=== PATIENT | female | born 1960 | race African-American/Black ===

== ENCOUNTER 2019-04-28 18:34 | Emergency (ER) | payer OTHER, MEDICAID, SELFPAY ==
[2019-04-28 18:59] VITALS: BP 153/98; PULSE 88; RESP 18; TEMP 36.7; O2SAT 99; BMI 27.4
--- NOTE | 2019-04-28 19:03 | DI.RAD.S_ITS ---
PROCEDURE: XR KNEE RT 3V INDICATIONS: RIGHT KNEE PAIN TECHNIQUE: 3 views of the knee were acquired. COMPARISON: None. FINDINGS: Bones: No fractures or dislocations. No suspicious bony lesions. Soft tissues: Small suprapatellar joint effusion is seen.. No suspicious soft tissue calcifications. IMPRESSION: No gross acute right knee fracture or dislocation. Small joint effusion. Dictated by: Nicholas Cleveland M.D. on 04/28/2019 at 19:16 Approved by: Nicholas Cleveland M.D. on 04/28/2019 at 19:16
--- NOTE | 2019-04-28 20:13 | ED.LOWEXIN ---
HPI - Extremity Injury (Lower) <ALEX Bhakta - Last Filed: 04/29/19 02:41> General Chief Complaint: Extremity Injury, Lower Stated Complaint: right knee pain injury x4 days Time Seen by Provider: 04/28/19 20:13 Source: patient Mode of arrival: Ambulatory Limitations: no limitations History of Present Illness HPI Narrative: This is a pleasant 58-year-old female, nonsmoker, who presents to ED with nontraumatic right knee discomfort with movement. Patient reports she is a homeless and has been sleeping in the car with the affected knee bent. Patient reports right knee throbbing discomfort for about a week which increases with bending, walking, bearing weight. Patient denies fever, chills, nausea or vomiting. Patient had not taken any medications for this. Patient denies previous injury to affected knee. Patient reports he is able to move her foot and intact has sensation. Related Data Allergies Allergy/AdvReac Type Severity Reaction Status Date / Time prednisone AdvReac Verified 04/28/19 18:59 Review of Systems <ALEX Bhakta - Last Filed: 04/29/19 02:41> Review of Systems ROS Unobtainable: All systems reviewed & are unremarkable except as noted in HPI and below PFSH <ALEX Bhakta - Last Filed: 04/29/19 02:41> Social History Smoking Status: Never smoker Social History Smoking Status: Never smoker Exam <ALEX Bhakta - Last Filed: 04/29/19 02:41> Narrative Exam Narrative: General appearance: well developed, well nourished, in no acute distress. Head: normocephalic, atraumatic, no scalp lesions, non-tender. Eye: pupil equal, round. EOMI. Nose: nares patent. Oral: mucosa moist. Neck/Thyroid: neck supple, full range of motion, no visible masses. Skin: no suspicious rashes, lesions over visible areas. Warm and dry. Heart: no clubbing, no cyanosis, no edema. Lungs: Breathing even and unlabored. No stridor. No accessory muscles used. Chest: normal shape and expansion. Abdomen: non-obese, non-distended. Neurologic: alert and oriented. Cognitive exam, SCREEN VENT BINDER and PNS grossly intact on informal exam. Psych: good eye contact, normal affect. Initial Vital Signs Initial Vital Signs: Vital Signs Temperature 98.1 F 04/28/19 18:59 Pulse Rate 88 04/28/19 18:59 Respiratory Rate 18 04/28/19 18:59 Blood Pressure 153/98 H 04/28/19 18:59 Pulse Oximetry 99 04/28/19 18:59 Extrem Right lower extremity: knee Details: normal to inspection, tenderness (Around the patella), swelling (Very small body to palpate) Location: of the pre-patellar area, abnormal ROM Details: pain with active ROM during; able to extend lower leg actively and knee ligament exam normal and lower leg Details: normal to inspection; no tenderness <Casi Wakefield DO - Last Filed: 04/29/19 08:46> Initial Vital Signs Initial Vital Signs: Vital Signs Temperature 98.1 F 04/28/19 18:59 Pulse Rate 88 04/28/19 18:59 Respiratory Rate 18 04/28/19 18:59 Blood Pressure 153/98 H 04/28/19 18:59 Pulse Oximetry 99 04/28/19 18:59 Procedures <ALEX Bhakta - Last Filed: 04/29/19 02:41> Orthopedic Splinting/Casting Injury #1: Side: right Lower Extremity Injury Location: knee Lower Extremity Immobilizer: Keo wrap Post splinting neuro exam: intact Post splinting vascular exam: intact Placed by: Nursing Scores <ALEX Bhakta - Last Filed: 04/29/19 02:41> GCS Urania coma scale eye opening: Spontaneous Urania coma scale verbal response: Orientated Nikita coma scale motor response: Obey commands Urania coma scale total score: 15 Course <ALEX Bhakta - Last Filed: 04/29/19 02:41> Orders Ordered: Discontinued Medications Ibuprofen (Advil) 800 mg PO NOW ONE Stop: 04/28/19 20:29 Last Admin: 04/28/19 20:54 Dose: Not Given Documented by: JESSICA Vital Signs Vital signs: Vital Signs - 8 hr 04/28/19 18:59 04/28/19 20:54 Temperature 98.1 F Pulse Rate 88 88 Respiratory Rate 18 18 Blood Pressure 153/98 H Blood Pressure [Left Arm] 142/72 H Pulse Oximetry 99 98 <Casi Wakefield DO - Last Filed: 04/29/19 08:46> Orders Ordered: Discontinued Medications Ibuprofen (Advil) 800 mg PO NOW ONE Stop: 04/28/19 20:29 Last Admin: 04/28/19 20:54 Dose: Not Given Documented by: JESSICA Vital Signs Vital signs: Vital Signs - 8 hr 04/28/19 18:59 04/28/19 20:54 Temperature 98.1 F Pulse Rate 88 88 Respiratory Rate 18 18 Blood Pressure 153/98 H Blood Pressure [Left Arm] 142/72 H Pulse Oximetry 99 98 MDM - Extremity Injury (Lower) <ALEX Bhakta - Last Filed: 04/29/19 02:41> Differential Diagnosis Differential diagnosis: Likely other (A knee dislocation, knee contusion, knee fracture) Medical Records Attestation: I reviewed the patient's medical records. Imaging Data XR-Knee RT: Radiologist's impression: [address] [address] XRay Report Signed Patient: Allison Owusu HMR#: [id number] : 1960Acct:[id number] Age/Sex: 58 / FDate of Service: 04/28/19 Loc: ED Accession Number: [id number] Procedure: XR knee RT 3V Ordering Provider: Radha Marion D.O. PROCEDURE: XR KNEE RT 3V INDICATIONS: RIGHT KNEE PAIN TECHNIQUE: 3 views of the knee were acquired. COMPARISON: None. FINDINGS: Bones: No fractures or dislocations. No suspicious bony lesions. Soft tissues: Small suprapatellar joint effusion is seen.. No suspicious soft tissue calcifications. IMPRESSION: No gross acute right knee fracture or dislocation. Small joint effusion. Dictated by: Nicholas Cleveland M.D. on 04/28/2019 at 19:16 Approved by: Nicholas Cleveland M.D. on 04/28/2019 at 19:16 [facility] Narrative Medical decision making narrative: This is a 58 year female who presents to ED with nontraumatic right knee pain worsens with movement. Patient reports she has been sleeping in a car with affected knee bent for several days before she noticed pain. X-ray shows no acute findings such as dislocation or fracture but showed a small joint effusion and supra patellar joint. Patient provided Motrin for pain and inflammation and applied Keo wrap for support and discomfort. Patient was able to move her toe is with intact sensation with brisk cap refill and intact dorsal pedal pulse on affected leg. Patient is able to bend and extend affected leg with some discomfort. Patient advised to use RICE therapy and advised to follow up with her primary care physician next week and return precautions were discussed. Return precautions were discussed and patient agrees with treatment plan and no further questions were expressed at this time. Discharge Plan Departure Patient Disposition: Home Clinical Impression: Effusion of right knee Acute knee pain Qualifiers: Laterality: right Qualified Code(s): M25.561 - Pain in right knee Discharge Date/Time: 04/28/19 20:57 Instructions: DI for Knee Pain Activity Restrictions/Additional Instructions: You have been diagnosed with [nontraumatic right knee pain and x-ray shows small supra patellar joint effusion. Please rest, elevated affected knee, use keo wrap for support and preventing bending affected knee, you could use ice/warm pack as needed]. What to do: *Take your medications as directed. You can take latf-wct-tnlsoie ibuprofen, Aleve, or naproxen as needed with food for pain. You can also use lucz-tds-ohfqnat Tylenol or acetaminophen for pain. *Follow up with your primary care provider in 2-3 days, call for an appointment. Let them know you were seen in the ED and that we asked you to be seen in follow up. Your primary care doctor may refer you to physical therapy and further imaging tests if the pain persists. *Return to ED if you have any new, worsening, or concerning symptoms, such as [worsening pain, fever, warmth, swelling, tingling/numbness/weakness to right leg, chest pain, breathing difficulty, unable to tolerate fluids, or any acute concerns]. Referrals: Salbador Quinones DO [Primary Care Provider] -
[2019-04-28 20:54] VITALS: BP 142/72; PULSE 88; RESP 18; O2SAT 98
--- NOTE | 2019-04-28 20:55 | PC.NURSE ---
CSM fully intact.
--- NOTE | 2019-04-28 20:58 | PC.NURSE ---
Left note for social welfare administrator to call patient on Tuesday to see if we can assist w/ housing. Pt is currently homeless.
--- NOTE | 2019-05-14 17:33 | CM.SWNOTE ---
ED SILVERWARE BUFFING MACHINE OPERATOR SILVERWARE BUFFING MACHINE OPERATOR found note that unfortunately had been from 04/28/19. RN requested SILVERWARE BUFFING MACHINE OPERATOR to call this pt. Called [phone] and left a message offering to speak with her regarding resources.
== END 2019-04-28 20:57 | disposition home or self-care (01) ==
PROVIDERS: Emergency Provider Nurse Practitioner Family; PCP Family Medicine
DX: M25.461 Effusion, right knee (principal); M25.561 Pain in right knee
CPT/HCPCS: 73562; 99282; 99283

== ENCOUNTER → 2019-09-13 14:03 | Outpatient (CLI) | payer OTHER, MEDICAID, SELFPAY ==
--- NOTE | 2019-09-13 | DI.MG.S_ITS ---
BILATERAL DIGITAL DIAGNOSTIC MAMMOGRAM 3D/2D: 09/13/2019 CLINICAL: Left breast pain. Comparison is made to exams dated: 01/02/2015 mammogram and 08/31/2012 mammogram - [facility]. There are scattered fibroglandular elements in both breasts. No significant masses, calcifications, or other findings are seen in either breast. Specifically, no abnormality seen in the left breast 2:00 o'clock region at the site of focal pain. IMPRESSION: INCOMPLETE: NEEDS ADDITIONAL IMAGING EVALUATION No significant masses, calcifications, or other findings are seen in either breast. Recommend targeted ultrasound of the left breast site of focal pain. This exam was interpreted at Station ID: [id number]. NOTE: For mammograms, a report in lay terms will be sent to the patient. Approximately 15% of breast malignancies will not be visualized mammographically. In the management of a palpable breast mass, a negative mammogram must not discourage biopsy of a clinically suspicious lesion. Electronically Signed By: Rafael Rosenberg M.D. slc/:09/13/2019 15:56:22 ACR BI-RADS Category 0: Incomplete [id number]
--- NOTE | 2019-09-13 | DI.US.S_ITS ---
LIMITED ULTRASOUND OF LEFT BREAST: 09/13/2019 CLINICAL: Focal left breast pain. Comparison is made to exams dated: 09/13/2019 mammogram - [facility], 01/02/2015 mammogram, 01/02/2015 ultrasound, and 08/31/2012 mammogram - [facility]. Color flow and real-time ultrasound of the left breast 2 o'clock region were performed. Decker scale images of the real-time examination were reviewed. No significant abnormalities were seen sonographically in the left breast in the region of focal pain. IMPRESSION: NEGATIVE There is no sonographic evidence of malignancy. Return to annual mammogram screening schedule is recommended. Exam findings and recommendation were conveyed to the patient by the Spout Liner. This exam was interpreted at Station ID: [id number]. Electronically Signed By: Rafael Rosenberg M.D. slc/:09/13/2019 16:06:52 letter sent: Normal Exam Ultrasound BI-RADS: 1 Negative
== END ==
PROVIDERS: PCP Family Medicine; Referring Provider Family Medicine; Visit Provider Family Medicine
DX: R92.8 Other abnormal and inconclusive findings on diagnostic imaging of breast (principal); N64.4 Mastodynia
CPT/HCPCS: 76642; 77066; G0279

== ENCOUNTER 2019-10-31 05:01 | Emergency (ER) | payer OTHER, MEDICAID, SELFPAY ==
--- NOTE | 2019-10-31 05:03 | ED_ITS ---
HPI - Anxiety General Chief Complaint: Anxiety Stated Complaint: anxiety Time Seen by Provider: 10/31/19 05:02 Source: patient Mode of arrival: Ambulatory Limitations: no limitations History of Present Illness HPI narrative: This is a 59-year-old female who comes in with complaint of anxiety. Patient states that she is homeless and lives usually in her RV but is currently staying with her daughter and sleeping at her place. She states that this morning she woke up at about 4:00 a.m. feeling anxious. She woke up, read her Bible tiffanie on her phone discussed with her daughter and this made her feel a little bit better. She states she does still feels sort of anxious and slightly claustrophobic. She denies any headache, no vision changes, she denies any chest pain or pressure, no shortness of breath, no nausea or vomiting, no issues with bowel movements, no issues with urination. She denies any other numbness tingling or weakness in her extremities. She states that her son is currently staying in her RV but that she is used to having to be mobile and moving around. She does not feel like there are any new big changes or stressors at the moment. She does have a history of hypertension she does take amlodipine, she states that she is allergic to prednisone. She denies any tobacco, alcohol or illicit. Patient states PCP is Dr. Reyes, she saw him 2 weeks ago. Related Data Previous Rx's Medication Instructions Recorded hydroxyzine HCl 25 mg PO BEDTIME PRN #10 tab 10/31/19 Allergies Allergy/AdvReac Type Severity Reaction Status Date / Time shellfish derived Allergy Verified 10/31/19 05:11 prednisone AdvReac Verified 04/28/19 18:59 Review of Systems Review of Systems ROS Unobtainable: All systems reviewed & are unremarkable except as noted in HPI and below Patient History Medical History (Updated 10/31/19 @ 05:20 by Radha Marion DO) Hypertension (Acute) Social History Smoking Status: Never smoker Smoking Status: Never smoker Substance Use Type: does not use Exam Narrative Exam Narrative: GENERAL: Alert and oriented x three, well-nourished, well- appearing female in mild distress. HEENT: Head normocephalic, atraumatic, EOMI, pupils reactive, face symmetric, moist mucous membranes NECK: Supple, full range of motion CARDIOVASCULAR: Regular rate and rhythm without murmurs, rubs or gallops. RESPIRATORY: Breath sounds equal bilaterally, no wheezes rales or rhonchi. ABDOMEN: Soft, nontender. Normoactive bowel sounds all 4 quadrants. No guarding or rebound, rigidity, no mass : No CVA tenderness EXTREMITIES: Normal range of motion, no clubbing or edema. Neurovascularly intact NEUROLOGICAL: Cranial nerves II through XII grossly intact. Moving all extremities SKIN: Warm, dry, no petechiae, no rashes or lesions. PSYCH: anxiety, denies other symptoms/issues Initial Vital Signs Initial Vital Signs: Vital Signs Temperature 97.1 F L 10/31/19 05:11 Pulse Rate 93 H 10/31/19 05:11 Respiratory Rate 18 10/31/19 05:11 Blood Pressure 193/105 H 10/31/19 05:11 Pulse Oximetry 100 10/31/19 05:11 Course Orders Ordered: ED Orders 10/31/19 05:16 EKG-12 Lead Stat Discontinued Medications Hydroxyzine Pamoate (Vistaril) 25 mg PO NOW ONE Stop: 10/31/19 05:23 Last Admin: 10/31/19 05:26 Dose: 25 mg Documented by: KIMBER Vital Signs Vital signs: Vital Signs - 8 hr 10/31/19 05:11 10/31/19 05:39 Temperature 97.1 F L Pulse Rate 93 H 90 Respiratory Rate 18 18 Blood Pressure 193/105 H Blood Pressure [Left Arm] 169/101 H Pulse Oximetry 100 100 [facility] - Anxiety ECG Data Attestation: I personally reviewed and interpreted this ECG as follows: Prior ECG tracings: not available for review Interpretation: Sinus rhythm rate 84 SD 178 QRS 82 QTC of 439. Q-wave in 2, 3 and AVF. Inverted T-wave in 3. No ST elevation or depression otherwise apprecia lilo. [facility] Narrative Medical decision making narrative: Patient does request something to help her go back to sleep. She does not seem excessively anxious. Heart rate is in normal range on recheck, patient is hypertensive on here in ED. No acute EKG changes or symptoms to suggest ACS or other cause. Discharge Plan Departure Patient Disposition: Home Clinical Impression: Anxiety Discharge Date/Time: 04/01/20 05:44 Instructions: DI for Anxiety -- Adult Activity Restrictions/Additional Instructions: Continue your blood pressure medication. You may take hydroxyzine 1 tablet prior to sleep as needed for anxiety. This medication can make you sleepy do not drive, perform hazardous activities or make any major decisions while taking it. Return to the ER for fevers, shortness of breath, chest pain or pressure, severe headaches, new vision changes, persistent vomiting, swelling in your extremities or other new or concerning symptoms. Prescriptions: New hydroxyzine HCl 25 mg tablet 25 mg PO BEDTIME PRN (Reason: anxiety) Qty: 10 RF: 0 Referrals: Eric Reyes MD [Non-Staff] - Salbador Quinones DO [Primary Care Provider] -
[2019-10-31 05:11] VITALS: BP 193/105; PULSE 93; RESP 18; TEMP 36.2; O2SAT 100
[2019-10-31] MEDS: hydrOXYzine pamoate 25 MG CAPSULE PO (05:26)
[2019-10-31 05:39] VITALS: BP 169/101; PULSE 90; RESP 18; O2SAT 100
== END 2019-10-31 05:44 | disposition home or self-care (01) ==
PROVIDERS: Emergency Provider Emergency Medicine; PCP Family Medicine
DX: F41.9 Anxiety disorder, unspecified (principal); I10 Essential (primary) hypertension
CPT/HCPCS: 93005; 99283

== ENCOUNTER → 2020-10-08 16:01 | Outpatient (CLI) | payer OTHER, MEDICAID, SELFPAY ==
--- NOTE | 2020-10-08 16:04 | DI.MG.S_ITS ---
BILATERAL DIGITAL SCREENING MAMMOGRAM 3D/2D WITH CAD: 10/08/2020 CLINICAL: Routine screening. Comparison is made to exams dated: 09/13/2019 mammogram - [facility], 01/02/2015 mammogram, and 08/31/2012 mammogram - [facility]. There are scattered fibroglandular elements in both breasts. Current study was also evaluated with a Computer Aided Detection (CAD) system. No significant masses, calcifications, or other findings are seen in either breast. There has been no significant interval change. IMPRESSION: NEGATIVE There is no mammographic evidence of malignancy. A 1 year screening mammogram is recommended. This exam was interpreted at Station ID: [id number]. NOTE: For mammograms, a report in lay terms will be sent to the patient. Approximately 15% of breast malignancies will not be visualized mammographically. In the management of a palpable breast mass, a negative mammogram must not discourage biopsy of a clinically suspicious lesion. Electronically Signed By: Lucien Mcadams M.D., jr/frandy:10/08/2020 16:32:51 letter sent: Normal Exam ACR BI-RADS Category 1: Negative 3341F
== END ==
PROVIDERS: PCP Family Medicine; Referring Provider Family Medicine; Visit Provider Family Medicine
DX: Z12.31 Encounter for screening mammogram for malignant neoplasm of breast (principal)
CPT/HCPCS: 77063; 77067

== ENCOUNTER 2021-12-20 02:36 | Emergency (ER) | payer OTHER, MEDICAID, SELFPAY ==
[2021-12-20 02:40] VITALS: BP 181/100; PULSE 109; RESP 17; TEMP 36.4; O2SAT 97; BMI 29.9
--- NOTE | 2021-12-20 02:51 | ED.GENADULT ---
HPI - General Adult General Chief complaint: Hypertension Stated complaint: nausea/headache x1 day Time Seen by Provider: 12/20/21 02:45 Source: patient Mode of arrival: Ambulatory History of Present Illness HPI narrative: 61-year-old female nonsmoker presents with her son and a chief complaint of a squeezing headache and nausea for the past day or 2. She admits to gradual onset of her headache that is squeezing and a 10/10. She denies any obvious provocation or palliation. She has some nasal congestion but denies any sore throat, cough or shortness of breath. She denies any injury or trauma. She has had no fever or chills and denies neck pain. She takes no blood thinners. She denies chest pain or shortness of breath. She has had nausea but denies any vomiting. She states eating or drinking seems to make her nausea worse. She denies any diarrhea constipation, dysuria, frequency or urgency. She denies any dietary or medication change. She has no neurologic symptoms such as blurred vision, trouble speech, extremity numbness, tingling or weakness. Her daughter was seen and evaluated for COVID Related Data Previous Rx's Medication Instructions Recorded hydroxyzine HCl 25 mg tablet 25 mg PO BEDTIME PRN #10 tab 10/31/19 Allergies Allergy/AdvReac Type Severity Reaction Status Date / Time shellfish derived Allergy Verified 10/31/19 05:11 prednisone AdvReac Verified 04/28/19 18:59 Review of Systems Review of Systems Narrative: GENERAL: See HPI HEENT: See HPI. RESPIRATORY: Denies dyspnea, cough, wheezing, hemoptysis, sputum. CARDIOVASCULAR: Denies chest pain, palpitations, orthopnea, edema, GASTROINTESTINAL: See HPI : Denies dysuria, frequency, incontinence, hematuria, urinary retention. MUSCULOSKELETAL: denies weakness, joint pain, or bony pain SKIN: Denies rash, skin lesions, or other NEUROLOGIC: See HPI PSYCHIATRIC: No concerning psychosocial issues. 12 point review of systems is negative except for those stated above Patient History Medical History Hypertension Social History Smoking Status: Never smoker Smoking Status: Never smoker alcohol intake frequency: 0-2 drinks per day Substance Use Type: does not use Exam Narrative Exam Narrative: GENERAL: [61] year old patient appears stated age. Well-developed patient, in mild distress. GCS 15 HEAD: Atraumatic. Normocephalic. EYES: Pupils equal round and reactive. Extraocular motions intact. No scleral icterus. No injection or drainage. ENT: Nose without bleeding, purulent drainage. Throat without erythema, tonsillar hypertrophy or exudate. Airway patent. NECK: Trachea midline. Non tender, no meningeal signs CARDIOVASCULAR: Regular rate and rhythm without murmurs, gallops, or rubs. RESPIRATORY: Clear to auscultation. Breath sounds equal bilaterally. No wheezes, rales, or rhonchi. GASTROINTESTINAL: Abdomen soft, non-tender, nondistended. EXTREMITIES: No edema or joint tenderness. BACK: Nontender without deformity or crepitance. No flank tenderness. NEURO: AOx3. SKIN: No rash or erythema of visible areas NIH Stroke Scale 1a. LOC: Patient is alert and keenly responsive (0) 1b. LOC Questions: Patient answers both LOC questions accurately (0) 1c. LOC Commands: Patient performs both tasks correctly (0) 2. Best Gaze: Normal (0) 3. Visual: No visual loss (0) 4. Facial palsy: Normal symmetrical movements (0) 5. Motor arm: No drift (0) 6. Motor leg: No drift (0) 7. Limb ataxia: Absent (0) 8. Sensory: Normal (0) 9. Best language: No aphasia; normal (0) 10. Dysarthria: Normal (0) 11. Extinction and inattention: No abnormality (0) NIHSS: 0 Initial Vital Signs Initial Vital Signs: Vital Signs Temperature 97.6 F 12/20/21 02:40 Pulse Rate 109 H 12/20/21 02:40 Respiratory Rate 17 12/20/21 02:40 Blood Pressure 181/100 H 12/20/21 02:40 Pulse Oximetry 97 12/20/21 02:40 Course Course Course Narrative: Headache considerations include, but not limited to: Subarachnoid hemorrhage, but unlikely as patient denies sudden onset of pain, not worst of life, or neck pain Meningitis considered, but thought unlikely given lack of Brudzinski's, Kernig's sign, altered mental status or fever Giant cell arteritis considered, but thought unlikely given lack of unilateral findings, pain in confucianist, vision change HTN Emergency considered, but thought unlikely given normal vitals Other serious diagnoses considered unlikely given lack of red flag findings such as sudden onset, increasing frequency, immunocompromise, systemic signs (fever, chills, stiff neck, or rash), focal neurologic findings, trauma, blood thinners, etc. Orders Ordered: ED Orders 12/20/21 02:45 Consult to [employer]UM[employer] APPRENTICE - Supervisor [employer] Stat 12/20/21 02:46 COVID19 -Nasal RAPID/Pre-Proc Stat 12/20/21 02:52 Urinalysis and Microscopic Stat Discontinued Medications Acetaminophen (Acetaminophen 325 Mg Tablet) 975 mg PO NOW ONE Stop: 12/20/21 03:58 Last Admin: 12/20/21 04:01 Dose: 975 mg Documented by: CHYNA Sodium Chloride (Normal Saline 0.9%) 1,000 mls @ 1,000 mls/hr IV BOLUS ONE Stop: 12/20/21 04:01 Last Infusion: 12/20/21 05:02 Dose: 0 mls/hr Documented by: [email or web address] Admin: 12/20/21 03:12 Dose: 1,000 mls/hr Documented by: [email or web address] Ketorolac Tromethamine (Ketorolac 30 Mg/Ml Vial) 15 mg IV NOW ONE Stop: 12/20/21 03:03 Last Admin: 12/20/21 03:11 Dose: 15 mg Documented by: [email or web address] Ondansetron HCl (Ondansetron 4 Mg/2 Ml Inj) 4 mg IV NOW ONE Stop: 12/20/21 03:03 Last Admin: 12/20/21 03:12 Dose: 4 mg Documented by: [email or web address] Pantoprazole Sodium (Pantoprazole 40 Mg Vial) 40 mg IV NOW ONE Stop: 12/20/21 03:03 Last Admin: 12/20/21 03:12 Dose: 40 mg Documented by: [email or web address] Vital Signs Vital signs: Vital Signs - 8 hr 12/20/21 02:40 12/20/21 05:08 Temperature 97.6 F Pulse Rate 109 H 77 Respiratory Rate 17 20 Blood Pressure 181/100 H 137/80 Pulse Oximetry 97 97 Medical Decision Making Lab Data Labs: Lab Results 12/20/21 12/20/21 Range/Units 02:46 02:52 Urine Color Yellow Urine Appearance Clear Urine pH 7.5 (4.5-8.0) Ur Specific [place] 1.015 (1.000-1.035) Urine Protein Trace H (Negative) Urine Glucose (UA) Negative (Negative) g/dL Urine Ketones Negative (NEGATIVE) Urine Occult Blood Negative (Negative) Urine Nitrate Negative (Negative) Urine Bilirubin Negative (NEGATIVE) Urine Urobilinogen 0.2 (0.2) E.U./dL Ur Leukocyte Esterase Negative (NEGATIVE) Urine RBC None seen (0-5/HPF) Urine WBC None seen (0-5/HPF) Urine Bacteria None seen (None) Ur Culture Indicated? Cult not indicated SARS-CoV-2 (PCR) Positive H (Negative) MDM Narrative Medical decision making narrative: Patient improved with above-stated symptoms. She does not have red flag features of headache such as those mentioned above. She is COVID positive but does not require supplemental oxygen or demonstrate any significant work of breathing. She is tolerating orals and well hydrated. Her nausea has been present for multiple days suggesting she is likely outside of the timeframe in which she could be considered a candidate for Paxlovid. Patient given return precautions and questions answered to her apparent satisfaction Discharge Plan Departure Patient Disposition: Home Clinical Impression: COVID Instructions: DI for COVID-19 (Suspected or Confirmed ) Activity Restrictions/Additional Instructions: *You have been diagnosed with [ COVID-19] *What to do: * per recommendations from the CDC and the [facility] Department of Health * stay home except to get medical care. Restrict activities outside your home, except for getting medical care. Do not go to work, school, or public areas. Avoid using public transportation, ride sharing, or taxis. * separate yourself from other people in your home. * call ahead before visiting your doctor * Wear a facemask * Cover your coughs and sneezes * Clean your hands often * Avoid sharing household items * Clean all high-touch services every day * Monitor your symptoms and seek prompt medical attention if your illness is worsening, particularly with difficulty in breathing. You may discontinue your isolation when: 1. You have been fever-free for at least 24 hours without the use of fever reducing medication, AND 2. Your symptoms are getting better, AND 3. At least 5 days have passed since symptoms first appeared 4. If you have fever, continue to stay home until fever resolves Individuals with laboratory confirmed COVID-19 who have not had any symptoms may discontinue home isolation when at least 5 days have passed since the date of their first COVID-19 diagnostic test and have had no subsequent illness You should notifiy any friends and family that have been in close contact *If up to date on COVID Vaccines, then they do not need to quarantine unless symptoms develop. Get tested on day 5 (or sooner if symptoms develop). Take precautions and watch for symptoms until day 10 *If NOT up to date on COVID Vaccines, then CDC recommends quarantine for at least 5 full days. Wear a well fitted mask at home if you must be around others. If they develop symptoms they should get tested. If they remain asymptomatic they should get tested on day 5. They should take precautions and monitor for symptoms until day 10. Prescriptions: No Action hydroxyzine HCl 25 mg tablet 25 mg PO BEDTIME PRN (Reason: anxiety) Qty: 10 0RF Referrals: Salbador Quinones DO [Primary Care Provider] -
[2021-12-20 03:03] LABS: COVID19 -Nasal RAPID POSITIVE (Negative)
[2021-12-20] MEDS: KETOROLAC 30 MG/ML VIAL 15 MG IV (03:11)
[2021-12-20] MEDS: PANTOPRAZOLE 40 MG VIAL IV (03:12)
[2021-12-20] MEDS: ONDANSETRON 4 MG/2 ML INJ IV (03:12)
[2021-12-20] MEDS: SODIUM CHLORIDE 0.9% 1,000 ML 1000 ML IV (03:12)
[2021-12-20] MEDS: ACETAMINOPHEN 325 MG TABLET 975 MG PO (04:01)
[2021-12-20 04:57] LABS: Appearance Urine UA CLEAR; Bilirubin Urine UA NEGATIVE (NEGATIVE); Color Urine UA YELLOW; Glucose Urine UA NEGATIVE (Negative); Ketones Urine UA NEGATIVE (NEGATIVE); Leukocyte Esterase Urine UA NEGATIVE (NEGATIVE); Nitrite Urine UA NEGATIVE (Negative); Occult Blood Urine UA NEGATIVE (Negative); Protein Urine UA TRACE (Negative); Specific Gravity Urine UA 1.015 (1.000-1.035); Urobilinogen Urine UA 0.2 E.U./dL (0.2)
[2021-12-20 04:58] LABS: pH Urine UA 7.5 (4.5-8.0)
[2021-12-20 05:08] VITALS: BP 137/80; PULSE 77; RESP 20; O2SAT 97
[2021-12-20 05:15] LABS: RBC Urine None Seen (0-5/HPF); WBC Urine None Seen (0-5/HPF)
[2021-12-20 05:16] LABS: Bacteria Urine None Seen; Culture Indicated Urine Cult Not Indicated
== END 2021-12-20 05:08 | disposition home or self-care (01) ==
PROVIDERS: Emergency Provider Emergency Medicine; PCP Family Medicine
DX: U07.1 COVID-19 (principal); R11.0 Nausea
CPT/HCPCS: 36415; 81001; 87635; 96374; 96375; 99284; C9803; C9113; J1885; J2405

== ENCOUNTER 2022-04-27 07:21 | Emergency (ER) | payer OTHER, MEDICAID, SELFPAY ==
[2022-04-27 07:46] VITALS: BP 165/106; PULSE 92; RESP 16; TEMP 37.1; O2SAT 99; BMI 29.9
--- NOTE | 2022-04-27 08:09 | DI.RAD.S_ITS ---
PROCEDURE: XR CHEST 1V INDICATIONS: chest pain TECHNIQUE: One view of the chest was acquired. COMPARISON: None. FINDINGS: Surgical changes and devices: None. Lungs and pleura: Lungs are clear. No pleural effusions or pneumothorax. Mediastinum: Mediastinal contours appear normal. Heart size is normal. Bones and chest wall: No suspicious bony lesions. Overlying soft tissues appear unremarkable. IMPRESSION: No acute pulmonary process. Dictated by: Brianne Lobato M.D. on 04/27/2022 at 9:00 Approved by: Brianne Lobato M.D. on 04/27/2022 at 9:00
[2022-04-27 08:12] VITALS: PULSE 97; O2SAT 99
[2022-04-27 08:13] VITALS: BP 154/93; PULSE 86; O2SAT 98
[2022-04-27 08:30] VITALS: BP 161/98; PULSE 87; RESP 18; O2SAT 97
--- NOTE | 2022-04-27 08:41 | DI.CT.S_ITS ---
PROCEDURE: CT HEAD/BRAIN WO CON INDICATIONS: headache htn TECHNIQUE: Noncontrast 4.5 mm thick angled axial sections acquired from the foramen magnum to the vertex, with coronal and sagittal reformats. For radiation dose reduction, the following was used: automated exposure control, adjustment of mA and/or kV according to patient size. COMPARISON: None. FINDINGS: Image quality: Excellent. CSF spaces: Basal cisterns are patent. No extra-axial fluid collections. Ventricles are normal in size and shape. Brain: No midline shift. No intracranial masses or hemorrhage. Decker-white matter interface is normal. Skull and face: Calvarium and visualized facial bones are intact, without suspicious lesions. Sinuses: Visualized sinuses and mastoids are clear. IMPRESSION: No CT evidence of acute intracranial abnormalities. Dictated by: Nicholas Cleveland M.D. on 04/27/2022 at 8:56 Approved by: Nicholas Cleveland M.D. on 04/27/2022 at 8:57
--- NOTE | 2022-04-27 08:41 | ED.GENADULT ---
HPI - General Adult General Chief complaint: Hypertension Stated complaint: HIGH BLOOD PRESSURE 191/114 Time Seen by Provider: 04/27/22 08:14 History of Present Illness HPI narrative: Patient is a 61-year-old female history of hypertension and asthma presenting today with ongoing headache and elevated blood pressure. She said that she was out of her amlodipine which he has been taking for blood pressure for about 1 month. She recently restarted it however she started having a light headache and noted that her blood pressure was quite elevated. She took at [employer] and was 191/100 head. She took some and ibuprofen ckgz-yic-yjofgoj which she said did not really help. She is here just because she is worried about her blood pressure and headache. She denies any chest pain or pressure. No blurry vision. No nausea or vomiting. No weakness numbness or tingling. Related Data Previous Rx's Medication Instructions Recorded hydroxyzine HCl 25 mg tablet 25 mg PO BEDTIME PRN anxiety #10 10/31/19 tabs Allergies Allergy/AdvReac Type Severity Reaction Status Date / Time shellfish derived Allergy Verified 10/31/19 05:11 prednisone AdvReac Verified 04/28/19 18:59 Review of Systems Review of Systems Narrative: GENERAL: Denies chills, fatigue, malaise, fever, sweats, travel HEENT: Denies sinus pain, ear pain, sore throat, difficulty swallowing, neck pain RESPIRATORY: Denies dyspnea, cough, wheezing, hemoptysis, sputum. CARDIOVASCULAR: Denies chest pain, palpitations, orthopnea, edema GASTROINTESTINAL: Denies nausea, vomiting, abdominal pain, diarrhea, constipation, melena. : Denies dysuria, frequency, incontinence, hematuria, urinary retention, flank pain. MUSCULOSKELETAL: Denies weakness, joint pain, or bony pain SKIN: No rash, no erythema, no pruritus NEUROLOGIC: + headache, see HPI PSYCHIATRIC: No concerning psychosocial issues. 12 point review of systems is negative except for those stated above and HPI Patient History Medical History Hypertension Social History Smoking Status: Never smoker Smoking Status: Never smoker alcohol intake frequency: 0-2 drinks per day Substance Use Type: does not use Exam Initial Vital Signs Initial Vital Signs: Vital Signs Temperature 98.7 F 09/27/22 07:46 Pulse Rate 92 H 04/27/22 07:46 Respiratory Rate 16 04/27/22 07:46 Blood Pressure 165/106 H 04/27/22 07:46 Pulse Oximetry 99 04/27/22 07:46 Oxygen Delivery Method 04/27/22 07:46 GENERAL: Alert pleasant 61-year-old female HEENT: Head atraumatic,EOMI, pupils reactive, face symmetric, moist mucous membranes CARDIOVASCULAR: Regular rate and rhythm without murmurs, rubs or gallops. RESPIRATORY: Breath sounds equal bilaterally, no wheezes rales or rhonchi. ABDOMEN: Soft, nontender. Normoactive bowel sounds all 4 quadrants. No guarding or rebound. EXTREMITIES: Normal range of motion, no clubbing or edema. Neurovascularly intact NEUROLOGICAL: Alert and oriented x4.Normal gait and speech. Cranial nerves II through XII grossly intact. Good mwhfow-oc-wbso, good mzvp-ku-awii, strength equal bilaterally, no dysarthria or aphasia, sensation in tact to soft touch bilaterally, no visual changes, no facial droop SKIN: Warm, dry, no laceration, no petechiae, no rashes or lesions. Scores NIH Stroke Scale Level of Conciousness: Alert, keenly responsive Ask month/age: Answers both questions correctly. Open/close eyes, close hand: Performs both tasks correctly Best gaze horizontal: Normal Visual mckay: No visual loss Facial palsy: Normal symetrical movement Left arm drift: No drift for full 10 sec Right arm drift: No drift for full 10 sec Left leg drift: No drift for full 5 sec Right leg drift: No drift for full 5 sec Limb ataxia: Absent Sensory on face/arms/legs: Normal, no sensory loss Best language: No aphasia, normal Dysarthria: Normal Extinction or inattention: No abnormality Total NIH Stroke scale score: 0 Course Orders Ordered: Discontinued Medications Acetaminophen (Acetaminophen 325 Mg Tablet) 975 mg PO NOW ONE Stop: 04/27/22 09:18 Last Admin: 04/27/22 09:54 Dose: 975 mg Documented By: BT Ketorolac Tromethamine (Ketorolac 30 Mg/Ml Vial) 15 mg IV NOW ONE Stop: 04/27/22 09:18 Last Admin: 04/27/22 09:54 Dose: 15 mg Documented By: BT Vital Signs Vital signs: Vital Signs - 8 hr 04/27/22 07:46 Temperature 98.7 F Pulse Rate 92 H Respiratory Rate 16 Blood Pressure 165/106 H Pulse Oximetry 99 Oxygen Delivery Method Room Air Medical Decision Making Differential Diagnosis Differential Diagnosis: Intracranial hemorrhage, hypertensive emergency, hypertensive urgency, CAD Lab Data Result diagrams: 04/27/22 08:44 04/27/22 08:44 Labs: Lab Results 04/27/22 04/27/22 04/27/22 Range/Units 08:44 08:44 08:44 WBC 6.1 (4.5-11.0) X10^3/uL RBC 4.01 (4.0-5.2) X10^6/uL Hgb 12.6 (12.0-16.0) g/dL Hct 36.3 (36-46) % MCV 90.7 (80-100) fL MCH 31.4 (26-34) PG MCHC 34.7 (30-36) % RDW 13.5 (11.6-14.8) % Plt Count 305 (150-400) X10^3/uL Neut % (Auto) 46.5 L (50-75) % Lymph % (Auto) 41.2 H (25-40) % Pender % (Auto) 7.0 (3-14) % Eos % (Auto) 4.6 H (2-4) % Baso % (Auto) 0.7 (0-2) % Neut # (Auto) 2800 (2030-9963) /uL Lymph # (Auto) 2500 (3628-0907) /uL Pender # (Auto) 400 (0-900) /uL Eos # (Auto) 300 (0-450) /uL Baso # (Auto) 0 (0-100) /uL PT 12.8 H (10.1-12.7) SECONDS INR 1.1 (0.9-1.3) APTT 33 (26-36) SECONDS Sodium 137 (137-145) mmol/L Potassium 4.3 (3.4-5.1) mmol/L Chloride 103 (98-107) mmol/L Carbon Dioxide 23 (22-32) mmol/L BUN 6 L (7-17) mg/dL Creatinine 0.59 (0.52-1.04) mg/dL Estimated GFR > 60 (>60) mL/min BUN/Creatinine Ratio 10.2 (6-22) Glucose 124 H (70-100) mg/dL Calcium 9.1 (8.4-10.2) mg/dL Magnesium 1.8 (1.6-2.3) mg/dL Total Bilirubin 1.3 (0.2-1.3) mg/dL AST 37 H (14-36) IU/L ALT 48 H (<35) IU/L Alkaline Phosphatase 74 (38-126) U/L Total Creatine Kinase 157 H (30-135) U/L CK-MB (CK-2) 0.90 (<2.37) ng/mL CK-MB (CK-2) Rel Index 0.6 L (1.5-5.0) % Troponin I < 0.012 (0.01-0.034) ng/mL Total Protein 8.5 H (6.3-8.2) g/dL Albumin 4.4 (3.5-5.0) g/dL Globulin 4.1 (1.7-4.1) g/dL Albumin/Globulin Ratio 1.1 (1.0-2.8) Lipase 59 (23-300) U/L Imaging Data Chest x-ray: Radiologist's Impression: XRay Report Signed Patient: Allison Owusu MR#: [id number] : 1960 Acct:[id number] Age/Sex: 61 / F Date of Service: 04/27/22 Loc: ED Accession Number: [id number] ?? Procedure: XR chest 1V Ordering Provider: Casi Wakefield D.O. PROCEDURE:? XR CHEST 1V ? INDICATIONS:? chest pain ? TECHNIQUE:? One view of the chest was acquired.? ? COMPARISON:? None. ? FINDINGS:? ? Surgical changes and devices:? None.? ? Lungs and pleura:? Lungs are clear.? No pleural effusions or pneumothorax.? ? Mediastinum:? Mediastinal contours appear normal.? Heart size is normal.? ? Bones and chest wall:? No suspicious bony lesions.? Overlying soft tissues appear unremarkable.? ? IMPRESSION:? No acute pulmonary process. ? ? Dictated by: Brianne Lobato M.D. on 04/27/2022 at 9:00 ? ? CT scan - head: Radiologist's Impression: [address] [address] [address] Scan Report Signed Patient: Allison Owusu MR#: [id number] : 1960 Acct:[id number] Age/Sex: 61 / F Date of Service: 04/27/22 Loc: ED Accession Number: [id number] ?? Procedure: CT head/brain wo con Ordering Provider: Casi Wakefield D.O. PROCEDURE:? CT HEAD/BRAIN WO CON ? INDICATIONS:? headache htn ? TECHNIQUE:? Noncontrast 4.5 mm thick angled axial sections acquired from the foramen magnum to the vertex, with coronal and sagittal reformats.? For radiation dose reduction, the following was used:? automated exposure control, adjustment of mA and/or kV according to patient size.? ? COMPARISON:? None. ? FINDINGS:? Image quality:? Excellent.? ? CSF spaces:? Basal cisterns are patent.? No extra-axial fluid collections.? Ventricles are normal in size and shape.? ? Brain:? No midline shift.? No intracranial masses or hemorrhage.? Decker-white matter interface is normal.? ? Skull and face:? Calvarium and visualized facial bones are intact, without suspicious lesions.? ? Sinuses:? Visualized sinuses and mastoids are clear.? ? IMPRESSION:? No CT evidence of acute intracranial abnormalities. ? ? Dictated by: Nicholas Cleveland M.D. on 04/27/2022 at 8:56 ? ? ECG Data Interpretation: Normal sinus rhythm rate 82 AK interval [address] changes Q-wave noted in lead 3 and AVF nonpathologic similar to previous EKG on 10/31/2019 [facility] Narrative Medical decision making narrative: Patient has known hypertension she has not been on her medication for about 1 month started having headache and symptoms she just restarted her blood pressure medication. Her blood pressure has come down here in the emergency depart without any sort of intervention. She has no focal deficits. Head CT and blood work were overall reassuring. No sign of end-organ damage. She is feeling better after pain. Medications here in the ED at this time recommend home monitoring and follow-up with PCP for possible blood pressure medication adjustment. Discharge Plan Departure Patient Disposition: Home Clinical Impression: Hypertension, Headache Instructions: DI for High Blood Pressure Activity Restrictions/Additional Instructions: *You have been diagnosed with high blood pressure and has *What to do: At this time continue taking blood pressure medication. Blood work is overall reassuring. I think it will just take time for her body to readjust to your blood pressure medication. Check your blood pressure daily either morning or night and recorded. You and your primary care provider may need to adjust your medications *Continue to take medications as directed Tylenol/acetaminophen 650 mg every 4-6 hours if needed for hyxn-ed-iwghrkze Ibuprofen 600 mg every 6 hours if needed for rmxz-hn-mvzhpsch pain Continue blood pressure medications previously prescribed *Follow up with your primary care provider in 2-3 days or call [phone] *Return to ER if you should have increasing headache chest pain shortness of breath blood pressure greater than 200/100 or any new, worsening or concerning symptoms Prescriptions: No Action hydroxyzine HCl 25 mg tablet 25 mg PO BEDTIME PRN (Reason: anxiety) Qty: 10 0RF Referrals: Salbador Quinones DO [Primary Care Provider] - Visit Report Forms: Patient Portal/API
--- NOTE | 2022-04-27 08:48 | PC.NURSE ---
Pt states she just moved to [facility] from [place]. was previously started on amlodopine 5mg daily. pt states she was taking it and then stopped bc she was feeling better. recently realized her BP was increasing and she was becoming symptomatic with frequent headaches. pain 11/08. BP 161/98.
[2022-04-27 08:52] LABS: Add Manual Diff / Slide Review NO; Basophils Absolute Auto 0 /uL (0-100); Basophils Percent Auto 0.7 % (0-2); Eosinophils Absolute Auto 300 /uL (0-450); Eosinophils Percent Auto 4.6 % (2-4); Hematocrit 36.3 % (36-46); Hemoglobin 12.6 g/dL (12.0-16.0); Lymphocytes Absolute Auto 2500 /uL (1100-4500); Lymphocytes Percent Auto 41.2 % (25-40); Mean Corpuscular HGB Conc 34.7 % (30-36); Mean Corpuscular Hemoglobin 31.4 PG (26-34); Mean Corpuscular Volume 90.7 fL (80-100); Monocytes Absolute Auto 400 /uL (0-900); Neutrophils Absolute Auto 2800 /uL (1500-7000); Neutrophils Percent Auto 46.5 % (50-75); Platelet Count 305 X10^3/uL (150-400); Red Blood Cell Count 4.01 X10^6/uL (4.0-5.2); Red Cell Distribution Width 13.5 % (11.6-14.8); White Blood Cell Count 6.1 X10^3/uL (4.5-11.0)
[2022-04-27 08:58] LABS: INR 1.1 (0.9-1.3); Prothrombin Time 12.8 SECONDS (10.1-12.7)
[2022-04-27 09:01] LABS: PTT Partial Thromboplastin Tim 33 SECONDS (26-36)
[2022-04-27 09:02] LABS: Alanine Aminotransferase 48 IU/L (<35); Albumin 4.4 g/dL (3.5-5.0); Albumin Globulin Ratio 1.1 (1.0-2.8); Alkaline Phosphatase 74 U/L (38-126); Aspartate Aminotransferase 37 IU/L (14-36); BUN Creatinine Ratio 10.2 (6-22); Bilirubin Total 1.3 mg/dL (0.2-1.3); Blood Urea Nitrogen 6 mg/dL (7-17); Calcium 9.1 mg/dL (8.4-10.2); Carbon Dioxide 23 mmol/L (22-32); Chloride 103 mmol/L (98-107); Creatine Kinase 157 U/L (30-135); Estimated Glomerular Filt Rate > 60 mL/min (>60); Globulin 4.1 g/dL (1.7-4.1); Glucose 124 mg/dL (70-100); Lipase 59 U/L (23-300); Magnesium 1.8 mg/dL (1.6-2.3); Potassium 4.3 mmol/L (3.4-5.1); Sodium 137 mmol/L (137-145); Total Protein 8.5 g/dL (6.3-8.2)
[2022-04-27 09:14] LABS: Troponin I < 0.012 ng/mL (0.01-0.034)
[2022-04-27 09:17] LABS: CKMB % Relative Index 0.6 % (1.5-5.0)
[2022-04-27 09:20] LABS: HEMOLYSIS 56 (0-50)
[2022-04-27] MEDS: KETOROLAC 30 MG/ML VIAL 15 MG IV (09:54)
[2022-04-27] MEDS: ACETAMINOPHEN 325 MG TABLET 975 MG PO (09:54)
[2022-04-27 10:53] VITALS: BP 157/91; PULSE 80; RESP 19; O2SAT 99
== END 2022-04-27 10:57 | disposition home or self-care (01) ==
PROVIDERS: Emergency Provider Emergency Medicine; PCP Family Medicine
DX: I10 Essential (primary) hypertension (principal); R51.9 Headache, unspecified; R07.9 Chest pain, unspecified
CPT/HCPCS: 36415; 70450; 71045; 80053; 82550; 82553; 83690; 83735; 84484; 85025; 85610; 85730; 93005; 96374; 99284; 99285; J1885

== ENCOUNTER 2022-05-30 18:03 | Emergency (ER) | payer OTHER, MEDICAID, SELFPAY ==
[2022-05-30 18:12] VITALS: BP 162/99; PULSE 113; RESP 20; TEMP 37.1; O2SAT 96
--- NOTE | 2022-05-30 18:16 | DI.RAD.S_ITS ---
PROCEDURE: XR CHEST 2V INDICATIONS: cough/soa/body aches TECHNIQUE: 2 views of the chest were acquired. COMPARISON: [facility], CR, XR CHEST 1V, 04/27/2022, 8:21. FINDINGS: Surgical changes and devices: None. Lungs and pleura: Lungs are clear. No pleural effusions or pneumothorax. Mediastinum: Possible hiatal hernia. Heart size is normal. Bones and chest wall: No suspicious bony abnormalities. Soft tissues appear unremarkable. IMPRESSION: No acute cardiopulmonary abnormality. Dictated by: Blake Mcgarry M.D. on 05/30/2022 at 20:22 Approved by: Blake Mcgarry M.D. on 05/30/2022 at 20:24
--- NOTE | 2022-05-30 20:02 | ED_ITS ---
HPI - SOB/Dyspnea General Chief Complaint: Upper Respiratory Symptoms Stated Complaint: Cough/Headache/Body Aches/SOB Time Seen by Provider: 05/30/22 20:02 Source: patient Mode of arrival: Ambulatory Limitations: no limitations History of Present Illness HPI Narrative: This is a 61-year-old female with history of asthma, hypertension who has had a recent viral infection with nasal congestion, nonproductive cough been afebrile for 3-4 days. Patient states she is been using her inhaler 5-6 times daily normally she uses once or twice at the most and sometimes forgets. Patient states she has had nonproductive cough she gets tight and feels wheezy in her throat and chest. She denies chest pain or pressure. She denies nausea or vomiting no GI or urinary symptoms. No swelling in extremities. Patient states that she is now allergic to prednisone it gives her headache when she takes it so she avoids that. She has had dexamethasone in the past she does not think that it causes any problems but she has not had steroids in many years. She deferred nasal swab she states it is very irritating and she would prefer not to. Patient does not use tobacco, no alcohol, no illicit. She does have steroid inhaler that she uses daily as well as montelukast daily. Related Data Previous Rx's Medication Instructions Recorded hydroxyzine HCl 25 mg tablet 25 mg PO BEDTIME PRN anxiety #10 10/31/19 tabs albuterol sulfate 2.5 mg/3 mL 2.5 mg (3 mL) inhalation Q4H PRN 05/30/22 (0.083 %) solution for nebulization shortness of breath or wheezing #90 mL dexamethasone 4 mg tablet 4 mg PO DAILY #3 tabs 05/30/22 Allergies Allergy/AdvReac Type Severity Reaction Status Date / Time shellfish derived Allergy Verified 10/31/19 05:11 prednisone AdvReac Verified 04/28/19 18:59 Review of Systems Review of Systems ROS Unobtainable: All systems reviewed & are unremarkable except as noted in HPI and below Patient History Medical History Hypertension Social History Smoking Status: Never smoker Smoking Status: Never smoker alcohol intake frequency: 0-2 drinks per day Substance Use Type: does not use Exam Narrative Exam Narrative: GENERAL: Alert and oriented x three, female in mild distress HEENT: Head normocephalic, atraumatic, EOMI, pupils reactive, face symmetric, moist mucous membranes NECK: Supple, full range of motion CARDIOVASCULAR: Regular rate and rhythm without murmurs, rubs or gallops. RESPIRATORY: Breath sounds equal bilaterally, positive for wheeze particularly left greater than right but present in both bases, no rales, no rhonchi, no tachypnea accessory muscle use. Speaks in full sentences. ABDOMEN: Soft, nontender. Normoactive bowel sounds all 4 quadrants. No guarding or rebound, rigidity, no mass : No CVA tenderness EXTREMITIES: Normal range of motion, no clubbing or edema. Neurovascularly intact NEUROLOGICAL: Cranial nerves II through XII grossly intact. Moving all extremities SKIN: Warm, dry, no petechiae, no rashes or lesions. Initial Vital Signs Initial Vital Signs: Vital Signs Temperature 98.7 F 05/30/22 18:12 Pulse Rate 113 H 05/30/22 18:12 Respiratory Rate 20 05/30/22 18:12 Blood Pressure 162/99 H 05/30/22 18:12 Pulse Oximetry 96 05/30/22 18:12 Oxygen Delivery Method 05/30/22 18:12 Course Orders Ordered: ED Orders 05/30/22 18:16 Chest [XR chest 2V] Stat Discontinued Medications Acetaminophen (Acetaminophen 325 Mg Tablet) 650 mg PO NOW ONE Stop: 05/30/22 21:20 Last Admin: 05/30/22 21:22 Dose: 650 mg Documented By: HARPREET Albuterol (Albuterol Hfa Prepack) 1 box MISC SEEINSTR ONE Stop: 05/30/22 21:26 Last Admin: 05/30/22 21:34 Dose: 1 box Documented By: DUKE Albuterol/Ipratropium (Albuterol/Ipratropium 3 Ml Ampul) 3 ml INH NOW ONE Stop: 05/30/22 20:31 Last Admin: 05/30/22 20:48 Dose: 3 ml Documented By: DUKE Dexamethasone (Dexamethasone 10 Mg/Ml Vial) 10 mg PO NOW ONE Stop: 05/30/22 20:31 Last Admin: 05/30/22 20:56 Dose: 10 mg Documented By: HARPREET Reevaluation(s) Reevaluation #1: patient had duoneb and feels improved. does have headache and given tylenol po. Feels comfortable to return home. Time: 21:28 Vital Signs Vital signs: Vital Signs - 8 hr 05/30/22 20:48 05/30/22 21:34 Pulse Rate 113 H 113 H Respiratory Rate 20 20 Pulse Oximetry 96 96 Oxygen Delivery Method Room Air Room Air MDM - SOB/Dyspnea Imaging Data Chest x-ray: Radiologist's Impression: [address] [id number] ReportSigned Patient: Allison Owusu HMR#: [id number]: 1960Acct:[id number]/Sex: 61 / FDate of Service: 05/30/22Loc: EDAccession Number: [id number]? ? Procedure: XR chest 2V Ordering Provider: Graham Galloway D.O. PROCEDURE:? XR CHEST 2V ? INDICATIONS:? cough/soa/body aches ? TECHNIQUE:? 2 views of the chest were acquired.? ? COMPARISON:? [facility], CR, XR CHEST 1V, 04/27/2022, 8:21. ? FINDINGS:? ? Surgical changes and devices:? None.? ? Lungs and pleura:? Lungs are clear.? No pleural effusions or pneumothorax.? ? Mediastinum:? Possible hiatal hernia.? Heart size is normal.? ? Bones and chest wall:? No suspicious bony abnormalities.? Soft tissues appear unremarkable.? ? IMPRESSION:? No acute cardiopulmonary abnormality. ? ? Dictated by: Blake Mcgarry M.D. on 05/30/2022 at 20:22? ?? Approved by: Blake Mcgarry M.D. on 05/30/2022 at 20:24?? MDM Narrative Medical decision making narrative: This is 61 year old female with history of asthma who has had recent viral infection, chest x-ray is negative, no chest pain or pressure or other cardiac equivalent symptoms appreciated. Patient states she has felt like she is had some increased need for her inhaler and it is not been as effective. She does have some mild wheeze on exam but no respiratory distress. Plan for DuoNeb, patient gets headaches with prednisone and like to avoid this so will try dexamethasone. She already has a steroid inhaler she already uses daily anti allergy medication with montelukast. Plan for short steroid burst and return precautions. Patient does note that she is out of her albuterol vials so will refill this well. She has lost her spacer so will give her this and she is almost out of her albuterol so give her inhaler this evening Discharge Plan Departure Patient Disposition: Home Clinical Impression: Asthma exacerbation, Acute upper respiratory infection Instructions: Asthma -- Adult Activity Restrictions/Additional Instructions: Viral upper respiratory infections will also in worsened your asthma and cause exacerbations. You may continue your albuterol as needed you can do 2-4 puffs every 4 hours, use with spacer. There is a prescription included for albuterol for her nebulizer at home. I would add dexamethasone which is an oral steroid daily for the next 3 days to see if this is helpful. Prescription sent to [facility] in [place]. Continue your steroid inhaler as well as your montelukast. Please return for new or worsening shortness of breath, chest pain, passing out, persistent vomiting, new swelling in her extremities, increasing difficulty breathing or other new or concerning changes. Prescriptions: New dexamethasone 4 mg tablet 4 mg PO DAILY Qty: 3 0RF albuterol sulfate 2.5 mg /3 mL (0.083 %) solution for nebulization 2.5 mg inhalation Q4H PRN (Reason: shortness of breath or wheezing) Qty: 90 0RF No Action hydroxyzine HCl 25 mg tablet 25 mg PO BEDTIME PRN (Reason: anxiety) Qty: 10 0RF Referrals: Miriam Schrader PA-C [Primary Care Provider] - Visit Report Forms: Patient Portal/API
[2022-05-30 20:48] VITALS: PULSE 113; RESP 20; O2SAT 96
[2022-05-30] MEDS: ALBUTEROL/IPRATROPIUM 3 ML AMPUL INH (20:48)
[2022-05-30] MEDS: DEXAMETHASONE 10 MG/ML VIAL PO (20:56)
[2022-05-30] MEDS: ACETAMINOPHEN 325 MG TABLET 650 MG PO (21:22)
[2022-05-30 21:34] VITALS: PULSE 113; RESP 20; O2SAT 96
[2022-05-30] MEDS: ALBUTEROL HFA PREPACK 1 BOX MISC (21:34)
== END 2022-05-30 21:50 | disposition home or self-care (01) ==
PROVIDERS: Emergency Provider Emergency Medicine; PCP Physician Assistant
DX: J45.901 Unspecified asthma with (acute) exacerbation (principal); J06.9 Acute upper respiratory infection, unspecified; Z86.16 Personal history of COVID-19
CPT/HCPCS: 71046; 94640; 99283; J1100

== ENCOUNTER 2022-06-01 19:39 | Emergency (ER) | payer OTHER, MEDICAID, SELFPAY ==
[2022-06-01 19:50] VITALS: BP 135/80; PULSE 113; RESP 20; TEMP 36.6; O2SAT 96
--- NOTE | 2022-06-01 22:37 | PC.NURSE ---
Dr Wakefield aware, pts neb mask broke and unable to have routine nebs. Pt given new mask for home and told she could be seen, pt left vdc.
== END 2022-06-01 22:44 | disposition left against medical advice (07) ==
PROVIDERS: Emergency Provider Emergency Medicine; PCP Physician Assistant
CPT/HCPCS: 99281

== ENCOUNTER 2022-07-30 20:02 | Emergency (ER) | payer OTHER, MEDICAID, SELFPAY ==
[2022-07-30 20:09] VITALS: BP 157/92; PULSE 118; RESP 20; TEMP 37.8; O2SAT 97; BMI 29.2
[2022-07-30 21:08] LABS: Influenza A - CEPHEID Flu A NEGATIVE (NEGATIVE); Influenza B - CEPHEID Flu B NEGATIVE (NEGATIVE); Respiratory Syncytial Virus Negative (Negative)
[2022-07-30] MEDS: KETOROLAC 30 MG/ML VIAL IM (21:10)
[2022-07-30 21:25] LABS: COVID-19 CEPHEID 4-PLEX PCR POSITIVE (Negative)
--- NOTE | 2022-07-30 21:38 | ED.HA ---
HPI - Headache General Chief Complaint: Headache Stated Complaint: Headache won't go away Time Seen by Provider: 07/30/22 20:41 Source: patient Mode of arrival: Ambulatory Limitations: no limitations History of Present Illness HPI Narrative: Patient is a 61-year-old female who is here for evaluation of a headache and body aches. No fevers. Was taken Tylenol and ibuprofen without any improvement. No fevers at home. Some nausea but no vomiting. No rashes. No problems breathing. No neck pain. Related Data Previous Rx's Medication Instructions Recorded hydroxyzine HCl 25 mg tablet 25 mg PO BEDTIME PRN anxiety #10 10/31/19 tabs albuterol sulfate 2.5 mg/3 mL 2.5 mg (3 mL) inhalation Q4H PRN 05/30/22 (0.083 %) solution for nebulization shortness of breath or wheezing #90 mL dexamethasone 4 mg tablet 4 mg PO DAILY #3 tabs 05/30/22 Allergies Allergy/AdvReac Type Severity Reaction Status Date / Time shellfish derived Allergy Verified 10/31/19 05:11 prednisone AdvReac Verified 04/28/19 18:59 Review of Systems Constitutional Constitutional: Reports system reviewed and no additional complaints, except as documented Eyes Eyes: Reports system reviewed and no additional complaints, except as documented ENT Ears, Nose, Mouth, and Throat: Reports system reviewed and no additional complaints, except as documented Respiratory Respiratory: Reports system reviewed and no additional complaints, except as documented Musculoskeletal Musculoskeletal: Reports system reviewed and no additional complaints, except as documented Integumentary/Breasts Skin/Breast: Reports system reviewed and no additional complaints, except as documented Neurologic Neurologic: Reports system reviewed and no additional complaints, except as documented Patient History Medical History Hypertension Social History Smoking Status: Never smoker Smoking Status: Never smoker alcohol intake frequency: 0-2 drinks per day Substance Use Type: does not use Exam Initial Vital Signs Initial Vital Signs: Vital Signs Temperature 100.0 F H 07/30/22 20:09 Pulse Rate 118 H 07/30/22 20:09 Respiratory Rate 20 07/30/22 20:09 Blood Pressure 157/92 H 07/30/22 20:09 Pulse Oximetry 97 07/30/22 20:09 Oxygen Delivery Method 07/30/22 20:09 Resp Auscultation: clear to auscultation bilaterally Cardio Rate: regular rate Rhythm: regular rhythm Skin General: no rashes or lesions noted Neuro General: patient alert, patient awake, patient oriented x3 and moves all extremities Extrem General: capillary refill normal Course Orders Ordered: ED Orders 07/30/22 20:17 Covid-19 + FLU A/B + RSV - PCR Stat Discontinued Medications Ketorolac Tromethamine (Ketorolac 30 Mg/Ml Vial) 30 mg IM NOW ONE Stop: 07/30/22 20:42 Last Admin: 07/30/22 21:10 Dose: 30 mg Documented By: LOUISE Vital Signs Vital signs: Vital Signs - 8 hr 07/30/22 20:09 07/30/22 22:26 Temperature 100.0 F H Pulse Rate 118 H 103 H Respiratory Rate 20 19 Blood Pressure 157/92 H 145/88 H Pulse Oximetry 97 97 Oxygen Delivery Method Room Air Room Air MDM - Headache Lab Data Labs: Lab Results 07/30/22 Range/Units 20:17 SARS-CoV-2 (PCR) Positive H (Negative) Influenza A (RT-PCR) Flu a negative (NEGATIVE) Influenza B (RT-PCR) Flu b negative (NEGATIVE) RSV (PCR) Negative (Negative) MDM Narrative Medical decision making narrative: Nontoxic. Low suspicion for meningitis. She is COVID positive which was most likely the cause of her symptoms. She was given Toradol. Did help her headache somewhat admit more tolerable. We will hold on further workup to include any imaging studies or labs. She was given return precautions. She expressed understanding and agreement. Discharge Plan Departure Patient Disposition: Home Clinical Impression: COVID, Headache Instructions: DI for Headache, COVID-19 Activity Restrictions/Additional Instructions: You can take Tylenol/ibuprofen for any headaches or body aches. Continue the rest of your medications as directed. Be sure to increase your fluid intake. Return to the emergency department for any new or worsening symptoms. Prescriptions: No Action hydroxyzine HCl 25 mg tablet 25 mg PO BEDTIME PRN (Reason: anxiety) Qty: 10 0RF dexamethasone 4 mg tablet 4 mg PO DAILY Qty: 3 0RF albuterol sulfate 2.5 mg /3 mL (0.083 %) solution for nebulization 2.5 mg inhalation Q4H PRN (Reason: shortness of breath or wheezing) Qty: 90 0RF Referrals: Miriam Schrader PA-C [Primary Care Provider] -
[2022-07-30 22:26] VITALS: BP 145/88; PULSE 103; RESP 19; O2SAT 97
== END 2022-07-30 22:31 | disposition home or self-care (01) ==
PROVIDERS: Emergency Provider Emergency Medicine; PCP Physician Assistant
DX: U07.1 COVID-19 (principal); R51.9 Headache, unspecified
CPT/HCPCS: 0241U; 96372; 99283; J1885

== ENCOUNTER → 2022-10-27 16:40 | Outpatient (CLI) | payer OTHER, MEDICAID, SELFPAY ==
--- NOTE | 2022-10-27 | DI.MG.S_ITS ---
BILATERAL DIGITAL SCREENING MAMMOGRAM 3D/2D WITH CAD: 10/27/2022 CLINICAL: Routine screening. Comparison is made to exams dated: 10/08/2020 mammogram - [facility] and 01/02/2015 mammogram - [facility]. There are scattered areas of fibroglandular density in both breasts (category b / 25%-50% glandular tissue). Current study was also evaluated with a Computer Aided Detection (CAD) system. There is a possible developing round low density asymmetry with a spiculated margin in the left breast posterior depth superior region seen on the mediolateral oblique view only. No other significant masses, calcifications, or other findings are seen in either breast. IMPRESSION: INCOMPLETE: NEEDS ADDITIONAL IMAGING EVALUATION The possible developing round low density asymmetry in the left breast is indeterminate. Additional views with possible ultrasound are recommended. Based on the Tyrer Cuzick model (a risk assessment model) the patient's lifetime risk is 4.1% and her 10 year risk is 1.6%. According to the ACR, ACS, and NCCN guidelines, an annual breast MRI exam along with mammogram is recommended if the patient's lifetime risk is 20% or greater. This exam was interpreted at Station ID: [id number]. NOTE: For mammograms, a report in lay terms will be sent to the patient. Approximately 15% of breast malignancies will not be visualized mammographically. In the management of a palpable breast mass, a negative mammogram must not discourage biopsy of a clinically suspicious lesion. Electronically Signed By: Jodi alcaraz/frandy:10/28/2022 09:22:54 letter sent: Additional Imaging Needed ACR BI-RADS Category 0: Incomplete 3340F
== END ==
PROVIDERS: PCP Physician Assistant; Referring Provider Physician Assistant; Visit Provider Physician Assistant
DX: Z12.31 Encounter for screening mammogram for malignant neoplasm of breast (principal)
CPT/HCPCS: 77063; 77067

== ENCOUNTER → 2022-11-30 08:45 | Outpatient (CLI) | payer OTHER, MEDICAID, SELFPAY ==
--- NOTE | 2022-11-30 | DI.US.S_ITS ---
LIMITED ULTRASOUND OF LEFT BREAST AND AXILLA: 11/30/2022 CLINICAL: Patient returns today to evaluate a focal asymmetry in the left breast. Comparison is made to exams dated: 11/30/2022 mammogram, 10/27/2022 mammogram, and 10/08/2020 mammogram - [facility]. Color flow ultrasound of the left breast was performed on the areas of interest. Decker scale images of the real-time examination were reviewed. IMPRESSION: NEGATIVE There is no sonographic evidence of malignancy. The questionable asymmetry in the left breast likely represent superimposed fibroglandular tissue and is benign. A 1 year screening mammogram is recommended. This exam was interpreted at Station ID: [id number]. Electronically Signed By: Veronika astorga/:11/30/2022 09:44:27 letter sent: Normal Exam Ultrasound BI-RADS: 1 Negative
--- NOTE | 2022-11-30 | DI.MG.S_ITS ---
UNILATERAL LEFT DIGITAL DIAGNOSTIC MAMMOGRAM 3D/2D WITH ADDITIONAL VIEWS: 11/30/2022 CLINICAL: Additional evaluation requested from prior study. Comparison is made to exams dated: 10/27/2022 mammogram, 10/08/2020 mammogram, and 09/13/2019 mammogram - [facility]. There are scattered areas of fibroglandular density in the left breast (category b / 25%-50% glandular tissue). The possible asymmetry in the left breast middle depth superior region seen on the mediolateral oblique view only is less prominenton additional views and may represent fibroglandular tissue. No other significant masses or calcifications are seen in the breast. IMPRESSION: INCOMPLETE: NEEDS ADDITIONAL IMAGING EVALUATION The possible asymmetry in the left breast is indeterminate. A targeted ultrasound of the left breast is recommended and will be performed immediately following this exam. Based on the Tyrer Cuzick model (a risk assessment model) the patient's lifetime risk is 4.1% and her 10 year risk is 1.6%. According to the ACR, ACS, and NCCN guidelines, an annual breast MRI exam along with mammogram is recommended if the patient's lifetime risk is 20% or greater. This exam was interpreted at Station ID: [id number]. NOTE: For mammograms, a report in lay terms will be sent to the patient. Approximately 15% of breast malignancies will not be visualized mammographically. In the management of a palpable breast mass, a negative mammogram must not discourage biopsy of a clinically suspicious lesion. Electronically Signed By: Veronika Costa M.D. lk/:11/30/2022 09:36:06 ACR BI-RADS Category 0: Incomplete 3340F
== END ==
PROVIDERS: PCP Physician Assistant; Referring Provider Physician Assistant; Visit Provider Physician Assistant
DX: R92.8 Other abnormal and inconclusive findings on diagnostic imaging of breast (principal)
CPT/HCPCS: 76642; 77065; G0279

== ENCOUNTER 2023-01-24 20:39 | Emergency (ER) | payer OTHER, MEDICAID, SELFPAY ==
[2023-01-24 20:47] VITALS: BP 173/84; PULSE 97; RESP 16; TEMP 36.3; O2SAT 98; BMI 29.9
--- NOTE | 2023-01-24 21:04 | DI.RAD.S_ITS ---
PROCEDURE: XR ELBOW RT MIN 3V INDICATIONS: pain TECHNIQUE: 3 views of the elbow were acquired. COMPARISON: None. FINDINGS: Bones: No fractures or dislocations. No suspicious bony lesions. Soft tissues: No elbow joint effusion. No suspicious soft tissue calcifications. IMPRESSION: No visualized acute fracture or dislocation. However, if clinical concern and/or pain persist, short interval imaging followup in 7-10 days is recommended, as occult injury cannot be definitively excluded. Dictated by: Brianne Lobato M.D. on 01/24/2023 at 21:28 Approved by: Brianne Lobato M.D. on 01/24/2023 at 21:28
--- NOTE | 2023-01-24 21:39 | DI.RAD.S_ITS ---
PROCEDURE: XR CHEST 1V INDICATIONS: chest pain TECHNIQUE: One view of the chest was acquired. COMPARISON: [facility], CR, XR CHEST 2V, 05/30/2022, 18:17. FINDINGS: Surgical changes and devices: None. Lungs and pleura: Lungs are clear. No pleural effusions or pneumothorax. Mediastinum: Mediastinal contours appear normal. Heart size is normal. Bones and chest wall: No suspicious bony lesions. Overlying soft tissues appear unremarkable. IMPRESSION: No acute pulmonary process. Dictated by: Brianne Lobato M.D. on 01/24/2023 at 23:17 Approved by: Brianne Lobato M.D. on 01/24/2023 at 23:17
[2023-01-24 21:47] LABS: Add Manual Diff / Slide Review NO; Basophils Absolute Auto 0 /uL (0-100); Basophils Percent Auto 0.6 % (0-2); Eosinophils Absolute Auto 200 /uL (0-450); Eosinophils Percent Auto 2.3 % (2-4); Hematocrit 35.4 % (36-46); Hemoglobin 12.1 g/dL (12.0-16.0); Lymphocytes Absolute Auto 3300 /uL (1100-4500); Mean Corpuscular HGB Conc 34.1 % (30-36); Mean Corpuscular Hemoglobin 31.2 PG (26-34); Mean Corpuscular Volume 91.6 fL (80-100); Monocytes Absolute Auto 600 /uL (0-900); Monocytes Percent Auto 8.3 % (3-14); Neutrophils Absolute Auto 2900 /uL (1500-7000); Neutrophils Percent Auto 41.8 % (50-75); Platelet Count 348 X10^3/uL (150-400); Red Blood Cell Count 3.86 X10^6/uL (4.0-5.2); Red Cell Distribution Width 13.6 % (11.6-14.8)
[2023-01-24 21:52] LABS: PTT Partial Thromboplastin Tim 32 SECONDS (26-36)
[2023-01-24 21:54] LABS: Alanine Aminotransferase 40 IU/L (<35); Albumin 4.4 g/dL (3.5-5.0); Albumin Globulin Ratio 1.2 (1.0-2.8); Alkaline Phosphatase 90 U/L (38-126); Aspartate Aminotransferase 29 IU/L (14-36); BUN Creatinine Ratio 11.3 (6-22); Bilirubin Total 0.9 mg/dL (0.2-1.3); Blood Urea Nitrogen 7 mg/dL (7-17); Carbon Dioxide 24 mmol/L (22-32); Chloride 104 mmol/L (98-107); Creatine Kinase 249 U/L (30-135); Estimated Glomerular Filt Rate > 60 mL/min (>60); Globulin 3.8 g/dL (1.7-4.1); Glucose 114 mg/dL (80-110); HEMOLYSIS < 15 (0-50); Lipase 118 U/L (23-300); Magnesium 1.9 mg/dL (1.6-2.3); Potassium 3.6 mmol/L (3.4-5.1); Sodium 138 mmol/L (137-145); Total Protein 8.2 g/dL (6.3-8.2)
--- NOTE | 2023-01-24 21:55 | ED_ITS ---
HPI - Extremity Problem General Chief complaint: Extremity Problem,Nontraumatic Stated complaint: R arm pain all day, increasing, t-1 Time Seen by Provider: 01/24/23 20:41 Source: patient Mode of arrival: Ambulatory History of Present Illness HPI Narrative: 62F nonsmoker without significant chronic medical history presents with a chief complaint of brief episodes of right arm pain in the absence of injury. She states that yesterday she noticed some throbbing pain in her elbow and over the course of the day it eventually became most of her arm. She denies any obvious provocation or palliation of her symptoms but states that she has frequent episodes of pain that last a few seconds before going away. She denies redness, warmth or swelling. She denies associated symptoms such as dizziness, weakness or lightheadedness. She has no chest pain, palpitations, shortness of breath nor nausea or vomiting. Related Data Previous Rx's Medication Instructions Recorded hydroxyzine HCl 25 mg tablet 25 mg PO BEDTIME PRN anxiety #10 10/31/19 tabs albuterol sulfate 2.5 mg/3 mL 2.5 mg (3 mL) inhalation Q4H PRN 05/30/22 (0.083 %) solution for nebulization shortness of breath or wheezing #90 mL dexamethasone 4 mg tablet 4 mg PO DAILY #3 tabs 05/30/22 Allergies Allergy/AdvReac Type Severity Reaction Status Date / Time shellfish derived Allergy Verified 10/31/19 05:11 prednisone AdvReac Verified 04/28/19 18:59 Review of Systems Review of Systems Narrative: GENERAL: Denies chills, fatigue, malaise, fever, sweats. HEENT: Denies sinus pain, ear pain, sore throat, difficulty swallowing, dizziness. RESPIRATORY: Denies dyspnea, cough, wheezing, hemoptysis, sputum. CARDIOVASCULAR: Denies chest pain, palpitations, orthopnea, edema, GASTROINTESTINAL: Denies nausea, vomiting, abdominal pain, diarrhea, constipation, melena. : Denies dysuria, frequency, incontinence, hematuria, urinary retention. MUSCULOSKELETAL: denies weakness, joint pain, or bony pain SKIN: Denies rash, skin lesions, or other NEUROLOGIC: Denies weakness, headache, numbness, change in speech, confusion, seizures, incoordination. PSYCHIATRIC: No concerning psychosocial issues. 12 point review of systems is negative except for those stated above Patient History Medical History Hypertension Social History Smoking Status: Never smoker Smoking Status: Never smoker alcohol intake frequency: 0-2 drinks per day Substance Use Type: does not use Exam Narrative Exam Narrative: GENERAL: [62] year old patient appears stated age. Well-developed patient, in mild distress. HEAD: Atraumatic. Normocephalic. EYES: Pupils equal round and reactive. Extraocular motions intact. No scleral icterus. No injection or drainage. ENT: Nose without bleeding, purulent drainage. Throat without erythema, tonsillar hypertrophy or exudate. Airway patent. NECK: Trachea midline. Non tender. NO change with axial load. CARDIOVASCULAR: Regular rate and rhythm without murmurs, gallops, or rubs. RESPIRATORY: Clear to auscultation. Breath sounds equal bilaterally. No wheezes, rales, or rhonchi. GASTROINTESTINAL: Abdomen soft, non-tender, nondistended. EXTREMITIES:negative phalens/tinels. No redness, swelling, discoloration. NO provocation on palpation or ROM. BACK: Nontender without deformity or crepitance. No flank tenderness. NEURO: AOx3. SKIN: No rash or erythema of visible areas Initial Vital Signs Initial Vital Signs: Vital Signs Temperature 97.4 F L 01/24/23 20:47 Pulse Rate 97 H 01/24/23 20:47 Respiratory Rate 16 01/24/23 20:47 Blood Pressure 173/84 H 01/24/23 20:47 Pulse Oximetry 98 01/24/23 20:47 Oxygen Delivery Method Room Air 01/24/23 20:47 Course Orders Ordered: ED Orders 01/24/23 21:04 XR elbow RT min 3V Stat 01/24/23 21:06 EKG-12 Lead Stat 01/24/23 21:35 Complete Blood Count AUTO DIFF Stat Comprehensive Metabolic Panel Stat Lipase Stat Magnesium Stat PTT Partial Thromboplastin Mahesh Stat Prothrombin Time INR Stat Troponin & CK Cardiac Panel Stat 01/24/23 21:39 XR chest 1V Stat 01/25/23 00:01 EKG-12 Lead Stat 01/25/23 00:10 Troponin & CK Cardiac Panel Stat Discontinued Medications Aspirin (Aspirin 81 Mg Chew Tab) 324 mg PO NOW ONE Stop: 01/24/23 21:39 Vital Signs Vital signs: Vital Signs - 8 hr 01/24/23 20:47 01/24/23 22:25 01/24/23 22:26 Temperature 97.4 F L Pulse Rate 97 H 88 85 Respiratory Rate 16 Blood Pressure 173/84 H Pulse Oximetry 98 99 98 Oxygen Delivery Method Room Air 01/24/23 22:26 01/24/23 22:30 01/24/23 22:30 Temperature Pulse Rate 87 Respiratory Rate Blood Pressure 162/100 H 140/87 Pulse Oximetry 97 Oxygen Delivery Method Room Air 01/24/23 23:00 01/24/23 23:00 01/24/23 23:30 Temperature Pulse Rate 83 Respiratory Rate Blood Pressure 148/84 H 151/90 H Pulse Oximetry 97 Oxygen Delivery Method Room Air 01/24/23 23:30 01/25/23 00:00 01/25/23 00:00 Temperature Pulse Rate 79 85 Respiratory Rate Blood Pressure 153/93 H Pulse Oximetry 97 99 Oxygen Delivery Method Room Air MDM - Extremity (Nontraumatic) Lab Data 01/24/23 21:35 01/24/23 21:35 Labs: Lab Results 01/24/23 01/24/23 01/24/23 Range/Units 21:35 21:35 21:35 WBC 7.0 (4.5-11.0) X10^3/uL RBC 3.86 L (4.0-5.2) X10^6/uL Hgb 12.1 (12.0-16.0) g/dL Hct 35.4 L (36-46) % MCV 91.6 (80-100) fL MCH 31.2 (26-34) PG MCHC 34.1 (30-36) % RDW 13.6 (11.6-14.8) % Plt Count 348 (150-400) X10^3/uL Neut % (Auto) 41.8 L (50-75) % Lymph % (Auto) 47.0 H (25-40) % Davison % (Auto) 8.3 (3-14) % Eos % (Auto) 2.3 (2-4) % Baso % (Auto) 0.6 (0-2) % Neut # (Auto) 2900 (8976-5327) /uL Lymph # (Auto) 3300 (1872-7335) /uL Davison # (Auto) 600 (0-900) /uL Eos # (Auto) 200 (0-450) /uL Baso # (Auto) 0 (0-100) /uL PT 12.0 (10.1-12.7) SECONDS INR 1.0 (0.9-1.3) APTT 32 (26-36) SECONDS Sodium 138 (137-145) mmol/L Potassium 3.6 (3.4-5.1) mmol/L Chloride 104 (98-107) mmol/L Carbon Dioxide 24 (22-32) mmol/L BUN 7 (7-17) mg/dL Creatinine 0.62 (0.52-1.04) mg/dL Estimated GFR > 60 (>60) mL/min BUN/Creatinine Ratio 11.3 (6-22) Glucose 114 H (80-110) mg/dL Calcium 9.0 (8.4-10.2) mg/dL Magnesium 1.9 (1.6-2.3) mg/dL Total Bilirubin 0.9 (0.2-1.3) mg/dL AST 29 (14-36) IU/L ALT 40 H (<35) IU/L Alkaline Phosphatase 90 (38-126) U/L Total Creatine Kinase 249 H (30-135) U/L CK-MB (CK-2) TNP CK-MB (CK-2) Rel Index TNP Troponin I < 0.012 (0.01-0.034) ng/mL Total Protein 8.2 (6.3-8.2) g/dL Albumin 4.4 (3.5-5.0) g/dL Globulin 3.8 (1.7-4.1) g/dL Albumin/Globulin Ratio 1.2 (1.0-2.8) Lipase 118 (23-300) U/L [facility] Narrative Medical decision making narrative: [62] year old patient presents with episodes of right arm pain Multiple etiologies for patient's symptoms considered including, but not limited to: [Musculoskeletal versus DVT versus cellulitis versus cervical radiculopathy versus cardiac ischemia versus other] Prior Charts reviewed in our EMR Primary Historian: patient Labs reviewed and interpreted by myself: No significant abnormal findings included troponin x2 Imaging reviewed: Chest x-ray without acute findings, elbow x-ray without acute finding Patient's symptoms improved over duration of stay with above-stated therapies. Findings and discharge diagnosis discussed with patient/family followed by verbalization of understanding Return precautions discussed with patient/family whom verbalize understanding of diagnosis and plan Discharge Plan Departure Patient Disposition: Home Clinical Impression: Arm pain Instructions: DI for Arm Pain Activity Restrictions/Additional Instructions: *You have been diagnosed with [right arm pain. As we discussed your history and physical exam are reassuring and there is no evidence of heart attack, blood clot, infection or other diagnosis which would require immediate or specific intervention.] *What to do: *Please continue to take your regular medications as directed. *Please follow up with your primary care provider in 2-3 days, call for an appointment. Let them know you were seen in the Emergency Department and that we ask that you be seen in follow up. We will electronically transmit a record of today's note if your PCP is in our system *Return to Emergency Department if you should have any new, worsening or concerning symptoms, such as [fever greater than 101 F, shaking chills, worsening pain, persistent vomiting or other bothersome symptoms] Prescriptions: No Action hydroxyzine HCl 25 mg tablet 25 mg PO BEDTIME PRN (Reason: anxiety) Qty: 10 0RF dexamethasone 4 mg tablet 4 mg PO DAILY Qty: 3 0RF albuterol sulfate 2.5 mg /3 mL (0.083 %) solution for nebulization 2.5 mg inhalation Q4H PRN (Reason: shortness of breath or wheezing) Qty: 90 0RF Referrals: Miriam Schrader PA-C [Primary Care Provider] - Stand Alone Forms: Patient Portal/API
[2023-01-24 22:06] LABS: Troponin I < 0.012 ng/mL (0.01-0.034)
[2023-01-24 22:25] VITALS: PULSE 88; O2SAT 99
[2023-01-24 22:26] VITALS: BP 162/100; PULSE 85; O2SAT 98
[2023-01-24 22:30] VITALS: BP 140/87; PULSE 87; O2SAT 97
[2023-01-24 23:00] VITALS: BP 148/84; PULSE 83; O2SAT 97
[2023-01-24 23:30] VITALS: BP 151/90; PULSE 79; O2SAT 97
[2023-01-25] VITALS: BP 153/93; PULSE 85; O2SAT 99
[2023-01-25 00:32] LABS: Creatine Kinase 224 U/L (30-135)
[2023-01-25 00:45] LABS: Troponin I < 0.012 ng/mL (0.01-0.034)
[2023-01-25 01:22] VITALS: BP 145/85; PULSE 92; RESP 18; O2SAT 98
== END 2023-01-25 01:23 | disposition home or self-care (01) ==
PROVIDERS: Emergency Provider Emergency Medicine; PCP Physician Assistant
DX: M79.601 Pain in right arm (principal)
CPT/HCPCS: 36415; 71045; 73080; 80053; 82550; 83690; 83735; 84484; 85025; 85610; 85730; 93005; 93010; 99284

== ENCOUNTER → 2023-01-26 10:33 | Outpatient (CLI) | payer OTHER, MEDICAID, SELFPAY ==
--- NOTE | 2023-01-26 | DI.US.S_ITS ---
PROCEDURE: US PERIPH VENOUS UP EXTREM RT INDICATIONS: PAIN AND ELEVATED D-DIMER TECHNIQUE: Real-time imaging, as well as color and pulse Doppler interrogation, was performed of the right upper extremity deep veins from the inferior neck to the antecubital fossa. COMPARISON: None. FINDINGS: The internal jugular vein, visualized portions of the subclavian vein, axillary, and brachial veins are free of intraluminal thrombus. Where physically possible, the veins are normally compressible. Color and pulse Doppler demonstrate normal intraluminal flow, with expected phasicity and pulsatility. Additional scanning of the cephalic and basilic veins of the superficial system demonstrate normal compressibility, without thrombus. IMPRESSION: No evidence of DVT in visualized right upper extremity veins. Dictated by: Nicholas Cleveland M.D. on 01/26/2023 at 11:49 Approved by: Nicholas Cleveland M.D. on 01/26/2023 at 11:50
== END ==
PROVIDERS: PCP Physician Assistant; Referring Provider Nurse Practitioner; Visit Provider Nurse Practitioner
DX: M79.621 Pain in right upper arm (principal); R79.89 Other specified abnormal findings of blood chemistry
CPT/HCPCS: 93971

== ENCOUNTER → 2024-06-22 13:15 | Outpatient (CLI) | payer OTHER, MEDICAID, SELFPAY ==
--- NOTE | 2024-06-22 13:17 | DI.MG.S_ITS ---
BILATERAL DIGITAL SCREENING MAMMOGRAM 3D/2D WITH CAD: 06/22/2024 CLINICAL: Routine screening. Comparison is made to exams dated: 10/27/2022 mammogram, 10/08/2020 mammogram, and 09/13/2019 mammogram - [facility]. There are scattered areas of fibroglandular density (category b / 25%-50% glandular tissue). Current study was also evaluated with a Computer Aided Detection (CAD) system. No significant masses, calcifications, or other findings are seen in either breast. There has been no significant interval change. IMPRESSION: NEGATIVE There is no mammographic evidence of malignancy. A 1 year screening mammogram is recommended. Based on the Tyrer Cuzick model (a risk assessment model) the patient's lifetime risk is 4.0% and her 10 year risk is 1.7%. According to the ACR, ACS, and NCCN guidelines, an annual breast MRI exam along with mammogram is recommended if the patient's lifetime risk is 20% or greater. This exam was interpreted at Station ID: [id number]. NOTE: For mammograms, a report in lay terms will be sent to the patient. Approximately 15% of breast malignancies will not be visualized mammographically. In the management of a palpable breast mass, a negative mammogram must not discourage biopsy of a clinically suspicious lesion. Electronically Signed By: Blake francois/frandy:06/22/2024 14:30:32 letter sent: Normal Exam ACR BI-RADS Category 1: Negative
== END ==
LOC: MAMMO 13:16
PROVIDERS: PCP Physician Assistant; Referring Provider Physician Assistant; Visit Provider Physician Assistant
DX: Z12.31 Encounter for screening mammogram for malignant neoplasm of breast (principal)
CPT/HCPCS: 77063; 77067